=== PATIENT | female | born 2000 | race Two or more races ===

== ENCOUNTER 2023-02-26 09:35 | Inpatient (IN) | payer OTHER ==
[~2023-02-26] VITALS: Ht 162.6 cm; Wt 59.0 kg
--- NOTE | 2023-02-26 10:05 | NUR ---
PTE ALERTA Y CONCIENTE X3, REFIERE ESTAR CON SINTOMAS DE VOMITOS, DIARREAS, ESCALOFRIOS Y FIEBRE DESDE HACE 3 GALVEZ. PTE SE EVALUA Y SE PASA A BURAK.
--- NOTE | 2023-02-26 11:37 | NUR ---
SE RECIBE PTE ALERTA Y ORIENTADA EN BURAK CON RESPUESTA A ESTIMULOS. SE ORIENTA EN TODO MOMENTO A PTE DE TRATAMIENTO A SEGUIR CON VICTORIA DE MUESTRA SRIRAM ORDEN MEDICA Y REFIERE ENTENDER. SE REALIZA VICTORIA DE MUESTRAS DE BRAZO LT BAJO MEDIDAS ASEPTICAS AREA QUEDA SAEID DE EDEMA O ERITEMA CON BUEN TUGOR. SE CANALIZA PTE EN BRAZO RT AREA DORSAL CON ANGIO #20 Y SE COL[place]AN LIQUIDOS DE MANTENIMIENTO SRIRAM ORDEN MEDICA AREA QUEDA SAEID DE EDEMA O ERITEMA CON BUEN TUGOR. SE OBSERVA POR CAMBIOS.
== END 2023-03-04 19:22 | disposition home or self-care (01) | DRG 194 ==
LOC: ER 09:35 → EDBD 09:35 → ER 11:02 → SURH 20:45
PROVIDERS: General Practice; ADMIT Internal Medicine; ATTEND Internal Medicine
PROC: BW24ZZZ Computerized Tomography (CT Scan) of Chest and Abdomen (ICD-10-PCS; principal; 2023-02-27)
DX: J10.00 Influenza due to other identified influenza virus with unspecified type of pneumonia (principal); J45.901 Unspecified asthma with (acute) exacerbation; Z20.822 Contact with and (suspected) exposure to COVID-19